=== PATIENT | female | born 1945 | race Caucasian/White ===

== ENCOUNTER 2019-12-03 18:58 | Emergency (ER) | payer MEDICARE ==
[~2019-12-03] VITALS: Ht 170.2 cm; Wt 81.6 kg
[~2019-12-03 18:58] MED LIST: AMIT100T2 PO; ASPI-252 PO; FENO200C8 PO; FLUO-125 PO; GLYB2.5T8 PO; LEVOPOW43; METO-159 PO; OMEP-337 PO; POTA10TA75 PO; SENN-34 PO; SIMV-8 PO; SPIR50TA5 PO
[2019-12-03] MEDS ORDERED: TETANUS-DIPTH-ACEL PERTUSSIS 0.5ML SYR Tdap IM ONE (22:45)
[2019-12-03 23:05] VITALS: BP 148/105
== END 2019-12-03 23:05 | disposition home or self-care (01) ==
LOC: ER 18:58
DX: S01.01XA Laceration without foreign body of scalp, initial encounter (principal); T14.90XA Injury, unspecified, initial encounter; E11.9 Type 2 diabetes mellitus without complications; I10 Essential (primary) hypertension; R51 Headache; M47.892 Other spondylosis, cervical region; D17.71 Benign lipomatous neoplasm of kidney; Z79.899 Other long term (current) drug therapy; Z79.82 Long term (current) use of aspirin; W22.8XXA Striking against or struck by other objects, initial encounter; Y93.89 Activity, other specified; Y92.89 Other specified places as the place of occurrence of the external cause; Y99.8 Other external cause status
CPT/HCPCS: 12002; 70450; 71250; 72125; 74176; 90471; 90715